=== PATIENT | male | born 1995 | race Caucasian/White ===

== ENCOUNTER 2020-07-09 16:22 | Emergency (ER) | payer OTHER, SELFPAY ==
--- NOTE | ~2020-07-09 | XR_ITS ---
EXAMINATION: XR CHEST, 2 VIEWS CLINICAL INFORMATION: Chest pain. COMPARISON: None. TECHNIQUE: PA and lateral views of the chest were obtained. FINDINGS: Lungs are clear. Small azygous fissure is noted. Cardiac leads overlie the chest. No consolidation, pneumothorax, or pleural effusion. Cardiac and mediastinal contours are normal. Pulmonary vasculature is unremarkable. Trachea is midline. Osseous structures are unremarkable. XR/XR chest 2V IMPRESSION: Normal chest radiographs.
--- NOTE | ~2020-07-09 | CT_ITS ---
EXAMINATION: CT ANGIOGRAM OF THE CHEST WITH AND WITHOUT CONTRAST (CT PULMONARY ANGIOGRAM FOR PE) CLINICAL INFORMATION: Reason for Exam right sided CP, elevated d dimer, elevated trop, r/o pe COMPARISON: None TECHNIQUE: Prior to contrast administration, noncontrast localization images were obtained. Subsequently, multidetector volumetric imaging was performed from the thoracic inlet to below the diaphragms following the administration of 57 mL Omnipaque 350 intravenous contrast. No contrast reaction reported Sagittal, coronal, and MIP oblique sagittal reformatted images were obtained on the CT workstation, uploaded to PACS, and reviewed. This CT examination was performed using dose optimization techniques as appropriate, variously including the following: *Automated exposure control *Adjustment of mA and/or kV according to patient size (this includes techniques or standardized protocols for targeted exams where dose is matched to indication/reason for exam; i.e. extremities or head) *Use of iterative reconstruction technique Total exam dose-length product 296 mGy-cm FINDINGS: QUALITY OF STUDY/CONTRAST BOLUS: Satisfactory. PULMONARY ARTERIES: No central or segmental pulmonary emboli. THORACIC AORTA: No aneurysm or dissection. LUNG: No focal consolidation, nodules or masses. Incidentally noted azygos lobe and fissure. PLEURA: No pleural effusion or pneumothorax. MEDIASTINUM: .Normal heart size. No pericardial effusion. No hilar or mediastinal lymphadenopathy. No evidence of septal bowing or right heart strain. CHEST WALL/AXILLA: No axillary or internal mammary lymphadenopathy. OSSEOUS STRUCTURES: No acute or suspicious osseous abnormality. UPPER ABDOMEN: Unremarkable. No reflux of contrast into the hepatic veins to suggest elevated right heart pressures. CT/CT angio chest PE protocol IMPRESSION: No pulmonary embolus. Clear lungs. VTE: negative
[2020-07-09 16:31] VITALS: BP 113/61; PULSE 72; RESP 16; TEMP 36.8; O2SAT 100; BMI 20.7
--- NOTE | 2020-07-09 16:34 | ECG_ITS ---
Test Reason : CHEST PAIN Blood Pressure : / mmHG Vent. Rate : 064 BPM Atrial Rate : 064 BPM P-R Int : 140 ms QRS Dur : 104 ms QT Int : 366 ms P-R-T Axes : 077 070 055 degrees QTc Int : 377 ms Normal sinus rhythm Incomplete right bundle branch block Borderline ECG No previous ECGs available Referred By: Lety Sánchez Electronically Signed By:FRANDY CAMPBELL MD
--- NOTE | 2020-07-09 17:38 | ED_ITS ---
HPI - Chest Pain General Chief Complaint: Chest Pain <HOWARD Martinez Last Filed: 07/09/20 21:46> Stated Complaint: chest pain - sent from [facility] <HOWARD Martinez Last Filed: 07/09/20 21:46> Time Seen by Provider: 07/09/20 17:17 <HOWARD Martinez Last Filed: 07/09/20 21:46> Source: patient <HOWARD Martinez Last Filed: 07/09/20 21:46> Mode of arrival: ambulatory <HOWARD Martinez Last Filed: 07/09/20 21:46> Limitations: no limitations <HOWARD Martinez Last Filed: 07/09/20 21:46> History of Present Illness HPI narrative: 24-year-old male previously healthy here with complaints of right-sided chest pain which radiates up to the right side of the neck since waking this morning. He tells me the pain was initially very severe and felt tight and was associated with shortness of breath. He tells me that it took his breath away. No cough, dizziness, nausea, vomiting, diaphoresis. Patient tells me he went to urgent care and had an EKG and received Toradol and now his pain is improving. Pain is worsened with lying flat and feels better when he is sitting up or sitting forward. Denies recent travel. Denies sick contacts. No history of PE or DVT or family history. No family history of SCD. Patient occasionally vapes Received Pfizer vaccine 2nd dose 3 days ago. <HOWARD Martinez Last Filed: 07/09/20 21:46> Related Data Home Medications: Home Medications Medication Instructions Recorded Confirmed multivitamin [Once Daily 1 tab PO DAILY 07/09/20 07/09/20 Multivitamin] <HOWARD Martinez Last Filed: 07/09/20 21:46> Allergies/Adverse Reactions: Allergies Allergy/AdvReac Type Severity Reaction Status Date / Time Penicillins Allergy Mild hives Verified 07/09/20 17:26 amoxicillin Allergy Hives Verified 07/09/20 22:54 <HOWARD Martinez Last Filed: 07/09/20 21:46> Review of Systems Review of Systems: Yes all other systems are reviewed and are negative <Lety Sánchez NP - Last Filed: 07/09/20 21:46> Constitutional: Constitutional: Reports no additional constitutional complaints, Denies body ache(s), Denies chills, Denies fever(s), Denies headache(s) and Denies weakness <Lety Sánchez NP - Last Filed: 07/09/20 21:46> Eyes: Eyes: Reports no additional eye complaints and Denies change in vision <Lety Sánchez NP - Last Filed: 07/09/20 21:46> ENT: Reports system reviewed and no additional complaints, except as documented, Denies dizziness, Denies headache(s), Denies nasal congestion, Ward es nasal discharge and Denies neck pain <Lety Sánchez NP - Last Filed: 07/09/20 21:46> Cardiovascular: Cardiovascular: Reports no additional cardiovascular complaints, Reports chest pain, Denies leg edema and Reports dyspnea <Lety Sánchez NP - Last Filed: 07/09/20 21:46> Respiratory: Respiratory: Reports no additional respiratory complaints, Denies cough and Reports dyspnea <Lety Sánchez NP - Last Filed: 07/09/20 21:46> Gastrointestinal: Gastrointestinal: Reports no additional gastrointestinal complaints, Denies abdominal pain, Denies diarrhea, Denies nausea and Denies vomiting <Lety Sánchez NP - Last Filed: 07/09/20 21:46> Genitourinary: Genitourinary: Denies urinary incontinence <Lety Sánchez NP - Last Filed: 07/09/20 21:46> Musculoskeletal: Musculoskeletal: Reports no additional musculoskeletal complaints, Denies back pain, Denies arthralgias, Denies joint swelling, Denies neck pain, Denies numbness and Denies tingling <Lety Sánchez NP - Last Filed: 07/09/20 21:46> Integumentary/Breasts: Skin/Breast: Reports system reviewed and no additional complaints, except as docu and Denies rash <Lety Sánchez NP - Last Filed: 07/09/20 21:46> Neurologic: Reports system reviewed and no additional complaints, except as documented, Denies Abnormal speech present, Denies dizziness, Denies headache(s), Denies numbness, Denies tingling and Denies weakness <Lety Sánchez NP - Last Filed: 07/09/20 21:46> PMFSH Past Medical History Attestation statement: The following information was validated with the patient. <Lety Sánchez NP - Last Filed: 07/09/20 21:46> Source: old records reviewed and nursing notes reviewed <Lety Sánchez NP - Last Filed: 07/09/20 21:46> Medical History: Medical History No known health problems <Lety Sánchez NP - Last Filed: 07/09/20 21:46> Social History Social History: Social History Smoked in Last 30 Days: No Use of substances other than those prescribed or required for medical reasons: No Advance Directives: No Advance Directives Information Provided: No <Lety Sánchez NP - Last Filed: 07/09/20 21:46> Physical Exam Vital Signs: Vital Signs: Last Vital Signs Temp 98.3 F 07/09/20 16:31 Pulse 69 07/09/20 23:27 Resp 10 L 07/09/20 23:27 BP 105/77 07/09/20 23:27 Pulse Ox 97 07/09/20 23:27 Body Mass Index 20.5 <Lety Sánchez NP - Last Filed: 07/09/20 21:46> Vital Signs: Last Vital Signs Temp 98.3 F 07/09/20 16:31 Pulse 69 07/09/20 23:27 Resp 10 L 07/09/20 23:27 BP 105/77 07/09/20 23:27 Pulse Ox 97 07/09/20 23:27 Body Mass Index 20.5 <Lisandro Berg MD - Last Filed: 07/10/20 00:04> Const: General: cooperative, healthy appearing, comfortable and no acute distress <Lety Sánchez NP - Last Filed: 07/09/20 21:46> Orientation/consciousness: patient oriented x3 <Lety Sánchez NP - Last Filed: 07/09/20 21:46> Limitations: no limitations <Lety Sánchez NP - Last Filed: 07/09/20 21:46> HENMT: Head: Yes normal to inspection <Lety Sánchez NP - Last Filed: 07/09/20 21:46> Ears: hearing grossly normal bilaterally <Lety Sánchez NP - Last Filed: 07/09/20 21:46> General nose exam: Normal external nose present <Lety Sánchez NP - Last Filed: 07/09/20 21:46> Face and sinus: Yes normal facial exam <Lety Sánchez NP - Last Filed: 07/09/20 21:46> Mouth: Normal oral and palatal mucosa present <Lety Sánchez NP - Last Filed: 07/09/20 21:46> Throat: Yes posterior oropharynx normal <Lety Sánchez NP - Last Filed: 07/09/20 21:46> Eyes: General: appearance normal, both eyes and all related structures <Lety Sánchez NP - Last Filed: 07/09/20 21:46> Pupils: Equal, round and reactive pupils present <Lety Sánchez NP - Last Filed: 07/09/20 21:46> Neck: Neck: Yes normal visual inspection <Lety Sánchez NP - Last Filed: 07/09/20 21:46> Chest: Chest palpation & inspection: normal inspection of the chest and normal palpation of entire chest wall <Lety Sánchez NP - Last Filed: 07/09/20 21:46> Resp: Effort & Inspection: normal respiratory effort <Lety Sánchez NP - Last Filed: 07/09/20 21:46> Auscultation: clear to auscultation bilaterally <Lety Sánchez NP - Last Filed: 07/09/20 21:46> Cardio: Rate: regular rate <Lety Sánchez NP - Last Filed: 07/09/20 21:46> Rhythm: regular rhythm <Lety áSnchez NP - Last Filed: 07/09/20 21:46> Peripheral pulses: Peripheral pulses 2+ throughout <Lety Sánchez BLACK PICKLER - Last Filed: 07/09/20 21:46> GI: Inspection: Yes normal to inspection <Lety Sánchez NP - Last Filed: 07/09/20 21:46> Palpation (GI): Soft to palpation and nontender <Lety Sánchez BLACK PICKLER - Last Filed: 07/09/20 21:46> Auscultation: normal bowel sounds <Lety Sánchez NP - Last Filed: 07/09/20 21:46> Back/Spine/Pelvis: Thoracic/Lumbar Spine: thoracic and lumbar spine normal to inspection <Lety Sánchez BLACK PICKLER - Last Filed: 07/09/20 21:46> Skin: General skin exam: no rashes or lesions noted <Lety Sánchez BLACK PICKLER - Last Filed: 07/09/20 21:46> Neuro: General: patient oriented x3, no focal motor deficits and normal sensation to monofilament <Lety Sánchez NP - Last Filed: 07/09/20 21:46> Cranial nerves: Yes Equal, round and reactive pupils present <Lety Sánchez NP - Last Filed: 07/09/20 21:46> Cognition (Neuro): normal cognition <Lety Sánchez NP - Last Filed: 07/09/20 21:46> Speech: No Abnormal speech present <Lety Sánchez BLACK PICKLER - Last Filed: 07/09/20 21:46> Gait exam (Neuro): Normal gait present <Lety Sánchez NP - Last Filed: 07/09/20 21:46> Motor exam (neuro): 5/5 motor strength present throughout <Lety Sánchez BLACK PICKLER - Last Filed: 07/09/20 21:46> Extrem: General: Yes normal to inspection, Yes no pedal edema and Yes no calf tenderness <Lety Sánchez BLACK PICKLER - Last Filed: 07/09/20 21:46> Course Course Course Narrative: 24-year-old male here with chest pain since waking which is improving as the day goes on. It is worsened with position changes and deep breathing. Hemodynamically stable. Will need labs, EKG, chest x-ray 1900-troponin elevated at 7652. A D-dimer was added in addition to inflammatory levels. Additional labs unremarkable. Chest x-ray no shows no acute finding. EKG shows a right bundle branch block but no elevation in the ST segment or evidence of right heart strain. Discussed with attending Dr. Berg. Plan for CTA to rule out PE/dissection/pericardial effusion. Then will discuss with Cardiology and plan for admission. 2099-CT negative for PE. Repeat troponin pending. Discussed with Dr. Vivar from Cardiology. Recommended aspirin, statins and heparin drip, following troponins, echocardiogram, cardiology consult. Requesting urine toxicology screen, cpk. Consider myocarditis. Patient does not need transfer and [place] [facility] [place]. 2129-second troponin elevated. Did update Dr Vivar from cardiology. Continue with plan of treating as above. No need for transfer as patient is clinically well and has symptoms which are much improved from previous. Call out to medicine to discuss for admission. 2144-Spoke to Dr Hernandez who accepted admission. <Lety Sánchez NP - Last Filed: 07/09/20 21:46> MDM - Chest Pain MDM Narrative Medical decision making narrative: Pericarditis, chest wall strain, , ACS, PE, myocarditis, pericarditis <Lety Sánchez NP - Last Filed: 07/09/20 21:46> Medical Records Data Attestation: I reviewed the patient's medical records. <Lety Sánchez NP - Last Filed: 07/09/20 21:46> Lab Data Attestation: I reviewed the patient's lab results. <Lety Sánchez NP - Last Filed: 07/09/20 21:46> Result diagrams: : 07/09/20 21:08 07/09/20 17:40 <Lety Sánchez NP - Last Filed: 07/09/20 21:46> Labs: Lab Results 04/25/21 04/25/21 04/25/21 Range/Units 17:40 17:40 17:40 WBC 7.8 (4.8-10.8) X10*3/uL RBC 5.13 (4.60-5.80) X10*6/uL Hgb 14.8 (14.0-18.0) g/dl Hct 45.6 (42-52) % MCV 88.9 (80-98) fL MCH 28.8 (27.0-33.0) pg MCHC 32.5 (31.0-36.0) g/dl RDW 12.9 (11.0-16.0) % Plt Count 168 (160-400) X10*3/uL MPV 11.6 (9.4-12.4) fL Immature Gran % (Auto) 0.3 (0.0-0.4) % Neut % (Auto) 81.7 H (45-73) % Lymph % (Auto) 9.0 L (20-40) % [place] % (Auto) 8.4 (2-11) % Eos % (Auto) 0.3 (0-4) % Baso % (Auto) 0.3 (0-2) % Lymph # (Auto) 0.7 L (1.2-4.9) X10*3/uL [place] # (Auto) 0.7 (0.1-1.2) X10*3/uL Eos # (Auto) 0.0 (0.0-0.4) X10*3/uL Baso # (Auto) 0.0 (0.0-0.2) X10*3/uL Abs Immat Gran (auto) 0.02 (0.00-0.03) X10*3/uL Absolute Neuts (auto) 6.3 (2.0-8.3) X10*3/uL Absolute Nucleated RBC 0.000 (0.0-0.012) X10*3/uL Nucleated RBC % (auto) 0.0 (0.0-0.2) /100WBC ESR (0-15) MM/HR PT (10.8-13.0) SEC INR (0.9-1.1) APTT (24.1-38.0) SEC PTT (Heparin Protocol) (53-77.9) SEC D-Dimer NG/ML Sodium 141 (135-145) mmol/L Potassium 3.9 (3.3-5.1) mmol/L Chloride 104 (96-108) mmol/L Carbon Dioxide 28 (22-29) mmol/L Anion Gap 13 (12-20) BUN 20 H (9-16) mg/dL Creatinine 1.05 (0.5-1.4) mg/dL Estim Creat Clear Calc 100.9 Estimated GFR > 60 Random Glucose 102 (60-115) mg/dL Calcium 9.4 (8.4-10.2) mg/dL Magnesium 2.1 (1.6-2.6) mg/dL Total Bilirubin 1.0 (0.0-1.0) mg/dL Direct Bilirubin 0.4 (0.0-0.5) mg/dL AST 54 H (5-37) U/L ALT 17 (0-40) U/L Alkaline Phosphatase 41 (39-117) U/L Total Creatine Kinase 595 H (38-174) U/L Troponin I High Sens 7652.5 H (<3.5-35.0) ng/L C-Reactive Protein 3.62 H (< or = 0.50) mg/dL Total Protein 6.8 (6.5-8.0) g/dL Albumin 4.3 (3.5-5.0) g/dL Urine Color Urine Appearance Urine pH (5.0-8.0) Ur Specific [place] (1.005-1.025) Urine Protein (NEG-TRACE) MG/DL Urine Glucose (UA) (NEG) MG/DL Urine Ketones (NEG) MG/DL Urine Blood (NEG) Urine Nitrite (NEG) Ur Leukocyte Esterase (NEG) Urine Opiates Screen (Not Detect) Ur Barbiturates Screen (Not Detect) Ur Phencyclidine Scrn (Not Detect) Ur Amphetamines Screen (Not Detect) U Benzodiazepines Scrn (Not Detect) Urine Cocaine Screen (Not Detect) U Marijuana (THC) Screen (Not Detect) COVID-19 ([facility]) (Negative) COVID-19 Clin Com 07/09/20 07/09/20 07/09/20 Range/Units 17:40 17:40 18:47 WBC (4.8-10.8) X10*3/uL RBC (4.60-5.80) X10*6/uL Hgb (14.0-18.0) g/dl Hct (42-52) % MCV (80-98) fL MCH (27.0-33.0) pg MCHC (31.0-36.0) g/dl RDW (11.0-16.0) % Plt Count (160-400) X10*3/uL MPV (9.4-12.4) fL Immature Gran % (Auto) (0.0-0.4) % Neut % (Auto) (45-73) % Lymph % (Auto) (20-40) % [place] % (Auto) (2-11) % Eos % (Auto) (0-4) % Baso % (Auto) (0-2) % Lymph # (Auto) (1.2-4.9) X10*3/uL [place] # (Auto) (0.1-1.2) X10*3/uL Eos # (Auto) (0.0-0.4) X10*3/uL Baso # (Auto) (0.0-0.2) X10*3/uL Abs Immat Gran (auto) (0.00-0.03) X10*3/uL Absolute Neuts (auto) (2.0-8.3) X10*3/uL Absolute Nucleated RBC (0.0-0.012) X10*3/uL Nucleated RBC % (auto) (0.0-0.2) /100WBC ESR 5 (0-15) MM/HR PT 13.2 H (10.8-13.0) SEC INR 1.1 (0.9-1.1) APTT 33.4 (24.1-38.0) SEC PTT (Heparin Protocol) (53-77.9) SEC D-Dimer 214 NG/ML Sodium (135-145) mmol/L Potassium (3.3-5.1) mmol/L Chloride (96-108) mmol/L Carbon Dioxide (22-29) mmol/L Anion Gap (12-20) BUN (9-16) mg/dL Creatinine (0.5-1.4) mg/dL Estim Creat Clear Calc Estimated GFR Random Glucose (60-115) mg/dL Calcium (8.4-10.2) mg/dL Magnesium (1.6-2.6) mg/dL Total Bilirubin (0.0-1.0) mg/dL Direct Bilirubin (0.0-0.5) mg/dL AST (5-37) U/L ALT (0-40) U/L Alkaline Phosphatase (39-117) U/L Total Creatine Kinase (38-174) U/L Troponin I High Sens (<3.5-35.0) ng/L C-Reactive Protein (< or = 0.50) mg/dL Total Protein (6.5-8.0) g/dL Albumin (3.5-5.0) g/dL Urine Color Urine Appearance Urine pH (5.0-8.0) Ur Specific [place] (1.005-1.025) Urine Protein (NEG-TRACE) MG/DL Urine Glucose (UA) (NEG) MG/DL Urine Ketones (NEG) MG/DL Urine Blood (NEG) Urine Nitrite (NEG) Ur Leukocyte Esterase (NEG) Urine Opiates Screen (Not Detect) Ur Barbiturates Screen (Not Detect) Ur Phencyclidine Scrn (Not Detect) Ur Amphetamines Screen (Not Detect) U Benzodiazepines Scrn (Not Detect) Urine Cocaine Screen (Not Detect) U Marijuana (THC) Screen (Not Detect) COVID-19 ([facility]) Negative (Negative) COVID-19 Clin Com See Note 07/09/20 07/09/20 07/09/20 Range/Units 20:24 21:08 21:08 WBC 5.2 (4.8-10.8) X10*3/uL RBC 4.99 (4.60-5.80) X10*6/uL Hgb 14.6 (14.0-18.0) g/dl Hct 44.8 (42-52) % MCV 89.8 (80-98) fL MCH 29.3 (27.0-33.0) pg MCHC 32.6 (31.0-36.0) g/dl RDW 13.1 (11.0-16.0) % Plt Count 171 (160-400) X10*3/uL MPV 12.0 (9.4-12.4) fL Immature Gran % (Auto) (0.0-0.4) % Neut % (Auto) (45-73) % Lymph % (Auto) (20-40) % [place] % (Auto) (2-11) % Eos % (Auto) (0-4) % Baso % (Auto) (0-2) % Lymph # (Auto) (1.2-4.9) X10*3/uL [place] # (Auto) (0.1-1.2) X10*3/uL Eos # (Auto) (0.0-0.4) X10*3/uL Baso # (Auto) (0.0-0.2) X10*3/uL Abs Immat Gran (auto) (0.00-0.03) X10*3/uL Absolute Neuts (auto) (2.0-8.3) X10*3/uL Absolute Nucleated RBC 0.000 (0.0-0.012) X10*3/uL Nucleated RBC % (auto) 0.0 (0.0-0.2) /100WBC ESR (0-15) MM/HR PT 13.2 H (10.8-13.0) SEC INR 1.1 (0.9-1.1) APTT (24.1-38.0) SEC PTT (Heparin Protocol) 33.2 L (53-77.9) SEC D-Dimer NG/ML Sodium (135-145) mmol/L Potassium (3.3-5.1) mmol/L Chloride (96-108) mmol/L Carbon Dioxide (22-29) mmol/L Anion Gap (12-20) BUN (9-16) mg/dL Creatinine (0.5-1.4) mg/dL Estim Creat Clear Calc Estimated GFR Random Glucose (60-115) mg/dL Calcium (8.4-10.2) mg/dL Magnesium (1.6-2.6) mg/dL Total Bilirubin (0.0-1.0) mg/dL Direct Bilirubin (0.0-0.5) mg/dL AST (5-37) U/L ALT (0-40) U/L Alkaline Phosphatase (39-117) U/L Total Creatine Kinase (38-174) U/L Troponin I High Sens 93984.1 H D (<3.5-35.0) ng/L C-Reactive Protein (< or = 0.50) mg/dL Total Protein (6.5-8.0) g/dL Albumin (3.5-5.0) g/dL Urine Color Urine Appearance Urine pH (5.0-8.0) Ur Specific [place] (1.005-1.025) Urine Protein (NEG-TRACE) MG/DL Urine Glucose (UA) (NEG) MG/DL Urine Ketones (NEG) MG/DL Urine Blood (NEG) Urine Nitrite (NEG) Ur Leukocyte Esterase (NEG) Urine Opiates Screen (Not Detect) Ur Barbiturates Screen (Not Detect) Ur Phencyclidine Scrn (Not Detect) Ur Amphetamines Screen (Not Detect) U Benzodiazepines Scrn (Not Detect) Urine Cocaine Screen (Not Detect) U Marijuana (THC) Screen (Not Detect) COVID-19 ([facility]) (Negative) COVID-19 Clin Com 07/09/20 07/09/20 Range/Units 21:19 21:19 WBC (4.8-10.8) X10*3/uL RBC (4.60-5.80) X10*6/uL Hgb (14.0-18.0) g/dl Hct (42-52) % MCV (80-98) fL MCH (27.0-33.0) pg MCHC (31.0-36.0) g/dl RDW (11.0-16.0) % Plt Count (160-400) X10*3/uL MPV (9.4-12.4) fL Immature Gran % (Auto) (0.0-0.4) % Neut % (Auto) (45-73) % Lymph % (Auto) (20-40) % [place] % (Auto) (2-11) % Eos % (Auto) (0-4) % Baso % (Auto) (0-2) % Lymph # (Auto) (1.2-4.9) X10*3/uL [place] # (Auto) (0.1-1.2) X10*3/uL Eos # (Auto) (0.0-0.4) X10*3/uL Baso # (Auto) (0.0-0.2) X10*3/uL Abs Immat Gran (auto) (0.00-0.03) X10*3/uL Absolute Neuts (auto) (2.0-8.3) X10*3/uL Absolute Nucleated RBC (0.0-0.012) X10*3/uL Nucleated RBC % (auto) (0.0-0.2) /100WBC ESR (0-15) MM/HR PT (10.8-13.0) SEC INR (0.9-1.1) APTT (24.1-38.0) SEC PTT (Heparin Protocol) (53-77.9) SEC D-Dimer NG/ML Sodium (135-145) mmol/L Potassium (3.3-5.1) mmol/L Chloride (96-108) mmol/L Carbon Dioxide (22-29) mmol/L Anion Gap (12-20) BUN (9-16) mg/dL Creatinine (0.5-1.4) mg/dL Estim Creat Clear Calc Estimated GFR Random Glucose (60-115) mg/dL Calcium (8.4-10.2) mg/dL Magnesium (1.6-2.6) mg/dL Total Bilirubin (0.0-1.0) mg/dL Direct Bilirubin (0.0-0.5) mg/dL AST (5-37) U/L ALT (0-40) U/L Alkaline Phosphatase (39-117) U/L Total Creatine Kinase (38-174) U/L Troponin I High Sens (<3.5-35.0) ng/L C-Reactive Protein (< or = 0.50) mg/dL Total Protein (6.5-8.0) g/dL Albumin (3.5-5.0) g/dL Urine Color YELLOW Urine Appearance CLEAR Urine pH 8.0 (5.0-8.0) Ur Specific [place] 1.010 (1.005-1.025) Urine Protein NEG (NEG-TRACE) MG/DL Urine Glucose (UA) 100 H (NEG) MG/DL Urine Ketones NEG (NEG) MG/DL Urine Blood NEG (NEG) Urine Nitrite NEG (NEG) Ur Leukocyte Esterase NEG (NEG) Urine Opiates Screen Not Detected (Not Detect) Ur Barbiturates Screen Not Detected (Not Detect) Ur Phencyclidine Scrn Not Detected (Not Detect) Ur Amphetamines Screen Not Detected (Not Detect) U Benzodiazepines Scrn Not Detected (Not Detect) Urine Cocaine Screen Not Detected (Not Detect) U Marijuana (THC) Screen Not Detected (Not Detect) COVID-19 ([facility]) (Negative) COVID-19 Clin Com <Lety Princess, BLACK PICKLER - Last Filed: 07/09/20 21:46> Lab Results 07/09/20 07/09/20 07/09/20 Range/Units 17:40 17:40 17:40 WBC 7.8 (4.8-10.8) X10*3/uL RBC 5.13 (4.60-5.80) X10*6/uL Hgb 14.8 (14.0-18.0) g/dl Hct 45.6 (42-52) % MCV 88.9 (80-98) fL MCH 28.8 (27.0-33.0) pg MCHC 32.5 (31.0-36.0) g/dl RDW 12.9 (11.0-16.0) % Plt Count 168 (160-400) X10*3/uL MPV 11.6 (9.4-12.4) fL Immature Gran % (Auto) 0.3 (0.0-0.4) % Neut % (Auto) 81.7 H (45-73) % Lymph % (Auto) 9.0 L (20-40) % [place] % (Auto) 8.4 (2-11) % Eos % (Auto) 0.3 (0-4) % Baso % (Auto) 0.3 (0-2) % Lymph # (Auto) 0.7 L (1.2-4.9) X10*3/uL [place] # (Auto) 0.7 (0.1-1.2) X10*3/uL Eos # (Auto) 0.0 (0.0-0.4) X10*3/uL Baso # (Auto) 0.0 (0.0-0.2) X10*3/uL Abs Immat Gran (auto) 0.02 (0.00-0.03) X10*3/uL Absolute Neuts (auto) 6.3 (2.0-8.3) X10*3/uL Absolute Nucleated RBC 0.000 (0.0-0.012) X10*3/uL Nucleated RBC % (auto) 0.0 (0.0-0.2) /100WBC ESR (0-15) MM/HR PT (10.8-13.0) SEC INR (0.9-1.1) APTT (24.1-38.0) SEC PTT (Heparin Protocol) (53-77.9) SEC D-Dimer NG/ML Sodium 141 (135-145) mmol/L Potassium 3.9 (3.3-5.1) mmol/L Chloride 104 (96-108) mmol/L Carbon Dioxide 28 (22-29) mmol/L Anion Gap 13 (12-20) BUN 20 H (9-16) mg/dL Creatinine 1.05 (0.5-1.4) mg/dL Estim Creat Clear Calc 100.9 Estimated GFR > 60 Random Glucose 102 (60-115) mg/dL Calcium 9.4 (8.4-10.2) mg/dL Magnesium 2.1 (1.6-2.6) mg/dL Total Bilirubin 1.0 (0.0-1.0) mg/dL Direct Bilirubin 0.4 (0.0-0.5) mg/dL AST 54 H (5-37) U/L ALT 17 (0-40) U/L Alkaline Phosphatase 41 (39-117) U/L Total Creatine Kinase 595 H (38-174) U/L Troponin I High Sens 7652.5 H (<3.5-35.0) ng/L C-Reactive Protein 3.62 H (< or = 0.50) mg/dL Total Protein 6.8 (6.5-8.0) g/dL Albumin 4.3 (3.5-5.0) g/dL Urine Color Urine Appearance Urine pH (5.0-8.0) Ur Specific [place] (1.005-1.025) Urine Protein (NEG-TRACE) MG/DL Urine Glucose (UA) (NEG) MG/DL Urine Ketones (NEG) MG/DL Urine Blood (NEG) Urine Nitrite (NEG) Ur Leukocyte Esterase (NEG) Urine Opiates Screen (Not Detect) Ur Barbiturates Screen (Not Detect) Ur Phencyclidine Scrn (Not Detect) Ur Amphetamines Screen (Not Detect) U Benzodiazepines Scrn (Not Detect) Urine Cocaine Screen (Not Detect) U Marijuana (THC) Screen (Not Detect) COVID-19 ([facility]) (Negative) COVID-19 Clin Com 04/25/21 04/25/21 04/25/21 Range/Units 17:40 17:40 18:47 WBC (4.8-10.8) X10*3/uL RBC (4.60-5.80) X10*6/uL Hgb (14.0-18.0) g/dl Hct (42-52) % MCV (80-98) fL MCH (27.0-33.0) pg MCHC (31.0-36.0) g/dl RDW (11.0-16.0) % Plt Count (160-400) X10*3/uL MPV (9.4-12.4) fL Immature Gran % (Auto) (0.0-0.4) % Neut % (Auto) (45-73) % Lymph % (Auto) (20-40) % [place] % (Auto) (2-11) % Eos % (Auto) (0-4) % Baso % (Auto) (0-2) % Lymph # (Auto) (1.2-4.9) X10*3/uL [place] # (Auto) (0.1-1.2) X10*3/uL Eos # (Auto) (0.0-0.4) X10*3/uL Baso # (Auto) (0.0-0.2) X10*3/uL Abs Immat Gran (auto) (0.00-0.03) X10*3/uL Absolute Neuts (auto) (2.0-8.3) X10*3/uL Absolute Nucleated RBC (0.0-0.012) X10*3/uL Nucleated RBC % (auto) (0.0-0.2) /100WBC ESR 5 (0-15) MM/HR PT 13.2 H (10.8-13.0) SEC INR 1.1 (0.9-1.1) APTT 33.4 (24.1-38.0) SEC PTT (Heparin Protocol) (53-77.9) SEC D-Dimer 214 NG/ML Sodium (135-145) mmol/L Potassium (3.3-5.1) mmol/L Chloride (96-108) mmol/L Carbon Dioxide (22-29) mmol/L Anion Gap (12-20) BUN (9-16) mg/dL Creatinine (0.5-1.4) mg/dL Estim Creat Clear Calc Estimated GFR Random Glucose (60-115) mg/dL Calcium (8.4-10.2) mg/dL Magnesium (1.6-2.6) mg/dL Total Bilirubin (0.0-1.0) mg/dL Direct Bilirubin (0.0-0.5) mg/dL AST (5-37) U/L ALT (0-40) U/L Alkaline Phosphatase (39-117) U/L Total Creatine Kinase (38-174) U/L Troponin I High Sens (<3.5-35.0) ng/L C-Reactive Protein (< or = 0.50) mg/dL Total Protein (6.5-8.0) g/dL Albumin (3.5-5.0) g/dL Urine Color Urine Appearance Urine pH (5.0-8.0) Ur Specific [place] (1.005-1.025) Urine Protein (NEG-TRACE) MG/DL Urine Glucose (UA) (NEG) MG/DL Urine Ketones (NEG) MG/DL Urine Blood (NEG) Urine Nitrite (NEG) Ur Leukocyte Esterase (NEG) Urine Opiates Screen (Not Detect) Ur Barbiturates Screen (Not Detect) Ur Phencyclidine Scrn (Not Detect) Ur Amphetamines Screen (Not Detect) U Benzodiazepines Scrn (Not Detect) Urine Cocaine Screen (Not Detect) U Marijuana (THC) Screen (Not Detect) COVID-19 ([facility]) Negative (Negative) COVID-19 Clin Com See Note 07/09/20 07/09/20 07/09/20 Range/Units 20:24 21:08 21:08 WBC 5.2 (4.8-10.8) X10*3/uL RBC 4.99 (4.60-5.80) X10*6/uL Hgb 14.6 (14.0-18.0) g/dl Hct 44.8 (42-52) % MCV 89.8 (80-98) fL MCH 29.3 (27.0-33.0) pg MCHC 32.6 (31.0-36.0) g/dl RDW 13.1 (11.0-16.0) % Plt Count 171 (160-400) X10*3/uL MPV 12.0 (9.4-12.4) fL Immature Gran % (Auto) (0.0-0.4) % Neut % (Auto) (45-73) % Lymph % (Auto) (20-40) % [place] % (Auto) (2-11) % Eos % (Auto) (0-4) % Baso % (Auto) (0-2) % Lymph # (Auto) (1.2-4.9) X10*3/uL [place] # (Auto) (0.1-1.2) X10*3/uL Eos # (Auto) (0.0-0.4) X10*3/uL Baso # (Auto) (0.0-0.2) X10*3/uL Abs Immat Gran (auto) (0.00-0.03) X10*3/uL Absolute Neuts (auto) (2.0-8.3) X10*3/uL Absolute Nucleated RBC 0.000 (0.0-0.012) X10*3/uL Nucleated RBC % (auto) 0.0 (0.0-0.2) /100WBC ESR (0-15) MM/HR PT 13.2 H (10.8-13.0) SEC INR 1.1 (0.9-1.1) APTT (24.1-38.0) SEC PTT (Heparin Protocol) 33.2 L (53-77.9) SEC D-Dimer NG/ML Sodium (135-145) mmol/L Potassium (3.3-5.1) mmol/L Chloride (96-108) mmol/L Carbon Dioxide (22-29) mmol/L Anion Gap (12-20) BUN (9-16) mg/dL Creatinine (0.5-1.4) mg/dL Estim Creat Clear Calc Estimated GFR Random Glucose (60-115) mg/dL Calcium (8.4-10.2) mg/dL Magnesium (1.6-2.6) mg/dL Total Bilirubin (0.0-1.0) mg/dL Direct Bilirubin (0.0-0.5) mg/dL AST (5-37) U/L ALT (0-40) U/L Alkaline Phosphatase (39-117) U/L Total Creatine Kinase (38-174) U/L Troponin I High Sens 83147.1 H D (<3.5-35.0) ng/L C-Reactive Protein (< or = 0.50) mg/dL Total Protein (6.5-8.0) g/dL Albumin (3.5-5.0) g/dL Urine Color Urine Appearance Urine pH (5.0-8.0) Ur Specific [place] (1.005-1.025) Urine Protein (NEG-TRACE) MG/DL Urine Glucose (UA) (NEG) MG/DL Urine Ketones (NEG) MG/DL Urine Blood (NEG) Urine Nitrite (NEG) Ur Leukocyte Esterase (NEG) Urine Opiates Screen (Not Detect) Ur Barbiturates Screen (Not Detect) Ur Phencyclidine Scrn (Not Detect) Ur Amphetamines Screen (Not Detect) U Benzodiazepines Scrn (Not Detect) Urine Cocaine Screen (Not Detect) U Marijuana (THC) Screen (Not Detect) COVID-19 (MARCO) (Negative) COVID-19 Clin Com 07/09/20 07/09/20 Range/Units 21:19 21:19 WBC (4.8-10.8) X10*3/uL RBC (4.60-5.80) X10*6/uL Hgb (14.0-18.0) g/dl Hct (42-52) % MCV (80-98) fL MCH (27.0-33.0) pg MCHC (31.0-36.0) g/dl RDW (11.0-16.0) % Plt Count (160-400) X10*3/uL MPV (9.4-12.4) fL Immature Gran % (Auto) (0.0-0.4) % Neut % (Auto) (45-73) % Lymph % (Auto) (20-40) % [place] % (Auto) (2-11) % Eos % (Auto) (0-4) % Baso % (Auto) (0-2) % Lymph # (Auto) (1.2-4.9) X10*3/uL [place] # (Auto) (0.1-1.2) X10*3/uL Eos # (Auto) (0.0-0.4) X10*3/uL Baso # (Auto) (0.0-0.2) X10*3/uL Abs Immat Gran (auto) (0.00-0.03) X10*3/uL Absolute Neuts (auto) (2.0-8.3) X10*3/uL Absolute Nucleated RBC (0.0-0.012) X10*3/uL Nucleated RBC % (auto) (0.0-0.2) /100WBC ESR (0-15) MM/HR PT (10.8-13.0) SEC INR (0.9-1.1) APTT (24.1-38.0) SEC PTT (Heparin Protocol) (53-77.9) SEC D-Dimer NG/ML Sodium (135-145) mmol/L Potassium (3.3-5.1) mmol/L Chloride (96-108) mmol/L Carbon Dioxide (22-29) mmol/L Anion Gap (12-20) BUN (9-16) mg/dL Creatinine (0.5-1.4) mg/dL Estim Creat Clear Calc Estimated GFR Random Glucose (60-115) mg/dL Calcium (8.4-10.2) mg/dL Magnesium (1.6-2.6) mg/dL Total Bilirubin (0.0-1.0) mg/dL Direct Bilirubin (0.0-0.5) mg/dL AST (5-37) U/L ALT (0-40) U/L Alkaline Phosphatase (39-117) U/L Total Creatine Kinase (38-174) U/L Troponin I High Sens (<3.5-35.0) ng/L C-Reactive Protein (< or = 0.50) mg/dL Total Protein (6.5-8.0) g/dL Albumin (3.5-5.0) g/dL Urine Color YELLOW Urine Appearance CLEAR Urine pH 8.0 (5.0-8.0) Ur Specific [place] 1.010 (1.005-1.025) Urine Protein NEG (NEG-TRACE) MG/DL Urine Glucose (UA) 100 H (NEG) MG/DL Urine Ketones NEG (NEG) MG/DL Urine Blood NEG (NEG) Urine Nitrite NEG (NEG) Ur Leukocyte Esterase NEG (NEG) Urine Opiates Screen Not Detected (Not Detect) Ur Barbiturates Screen Not Detected (Not Detect) Ur Phencyclidine Scrn Not Detected (Not Detect) Ur Amphetamines Screen Not Detected (Not Detect) U Benzodiazepines Scrn Not Detected (Not Detect) Urine Cocaine Screen Not Detected (Not Detect) U Marijuana (THC) Screen Not Detected (Not Detect) COVID-19 (MARCO) (Negative) COVID-19 Clin Com <Lisandro Berg MD - Last Filed: 07/10/20 00:04> Imaging Data Chest x-ray: Attestation: I personally reviewed and interpreted this imaging study as follows: <Lety Sánchez NP - Last Filed: 07/09/20 21:46> Radiologist's impression: EXAMINATION: XR CHEST, 2 VIEWS CLINICAL INFORMATION: Chest pain. COMPARISON: None. TECHNIQUE: PA and lateral views of the chest were obtained. FINDINGS: Lungs are clear. Small azygous fissure is noted. Cardiac leads overlie the chest. No consolidation, pneumothorax, or pleural effusion. Cardiac and mediastinal contours are normal. Pulmonary vasculature is unremarkable. Trachea is midline. Osseous structures are unremarkable. XR/XR chest 2V IMPRESSION: Normal chest radiographs. <Lety Sánchez NP - Last Filed: 07/09/20 21:46> CT scan - chest: Attestation: I personally reviewed and interpreted this imaging study as follows: <Lety Sánchez NP - Last Filed: 07/09/20 21:46> Radiologist's impression: EXAMINATION: CT ANGIOGRAM OF THE CHEST WITH AND WITHOUT CONTRAST (CT PULMONARY ANGIOGRAM FOR PE) CLINICAL INFORMATION: Reason for Exam right sided CP, elevated d dimer, elevated trop, r/o pe COMPARISON: None TECHNIQUE: Prior to contrast administration, noncontrast localization images were obtained. Subsequently, multidetector volumetric imaging was performed from the thoracic inlet to below the diaphragms following the administration of 57 mL Omnipaque 350 intravenous contrast. No contrast reaction reported Sagittal, coronal, and MIP oblique sagittal reformatted images were obtained on the CT workstation, uploaded to PACS, and reviewed. This CT examination was performed using dose optimization techniques as appropriate, variously including the following: *Automated exposure control *Adjustment of mA and/or kV according to patient size (this includes techniques or standardized protocols for targeted exams where dose is matched to indication/reason for exam; i.e. extremities or head) *Use of iterative reconstruction technique Total exam dose-length product 296 mGy-cm FINDINGS: QUALITY OF STUDY/CONTRAST BOLUS: Satisfactory. PULMONARY ARTERIES: No central or segmental pulmonary emboli. THORACIC AORTA: No aneurysm or dissection. LUNG: No focal consolidation, nodules or masses. Incidentally noted azygos lobe and fissure. PLEURA: No pleural effusion or pneumothorax. MEDIASTINUM: .Normal heart size. No pericardial effusion. No hilar or mediastinal lymphadenopathy. No evidence of septal bowing or right heart strain. CHEST WALL/AXILLA: No axillary or internal mammary lymphadenopathy. OSSEOUS STRUCTURES: No acute or suspicious osseous abnormality. UPPER ABDOMEN: Unremarkable. No reflux of contrast into the hepatic veins to suggest elevated right heart pressures. CT/CT angio chest PE protocol IMPRESSION: No pulmonary embolus. Clear lungs. VTE: negative <Lety Sánchez NP - Last Filed: 07/09/20 21:46> ECG Data ECG #1: Attestation: I personally reviewed and interpreted this ECG as follows: <Lety Sánchez NP - Last Filed: 07/09/20 21:46> ECG interpretation date: 07/09/20 <HOWARD Martinez Last Filed: 07/09/20 21:46> ECG interpretation time: 16:34 <HOWARD Martinez Last Filed: 07/09/20 21:46> Interpretation: Normal sinus rhythm with a rate of 64, normal DE, incomplete right bundle branch block, normal Qtc <HOWARD Martinez Last Filed: 07/09/20 21:46> Discharge Plan Discharge Clinical Impression: Chest pain, Elevated troponin <HOWARD Martinez Last Filed: 07/09/20 21:46> Patient Disposition: Admitted As Inpatient <HOWARD Martinez Last Filed: 07/09/20 21:46>
[2020-07-09 17:44] LABS: MANUAL DIFF FLAG NO
[2020-07-09 17:47] LABS: Basophils Percent Auto 0.3 % (0-2); Eosinophils Percent Auto 0.3 % (0-4); Hematocrit 45.6 % (42-52); Hemoglobin 14.8 g/dl (14.0-18.0); Imm Gran Abs Auto 0.02 X10*3/uL (0.00-0.03); Imm Gran Pct Auto 0.3 % (0.0-0.4); Lymphocytes Absolute Auto 0.7 X10*3/uL (1.2-4.9); Mean Corpuscular HGB Conc 32.5 g/dl (31.0-36.0); Mean Corpuscular Hemoglobin 28.8 pg (27.0-33.0); Mean Corpuscular Volume 88.9 fL (80-98); Mean Platelet Volume 11.6 fL (9.4-12.4); Monocytes Absolute Auto 0.7 X10*3/uL (0.1-1.2); Monocytes Percent Auto 8.4 % (2-11); Neutrophils Absolute Auto 6.3 X10*3/uL (2.0-8.3); Neutrophils Percent Auto 81.7 % (45-73); Platelet Count 168 X10*3/uL (160-400); Red Blood Count 5.13 X10*6/uL (4.60-5.80); Red Cell Distribution Width 12.9 % (11.0-16.0); White Blood Count 7.8 X10*3/uL (4.8-10.8)
[2020-07-09 17:53] LABS: INTERNATIONAL NORM RATIO 1.1 (0.9-1.1); Prothrombin Time 13.2 SEC (10.8-13.0)
[2020-07-09 18:08] LABS: Alanine Aminotransferase 17 U/L (0-40); Albumin Level 4.3 g/dL (3.5-5.0); Alkaline Phosphatase 41 U/L (39-117); Anion Gap 13 (12-20); Aspartate Amino Transferase 54 U/L (5-37); Bilirubin Direct 0.4 mg/dL (0.0-0.5); Blood Urea Nitrogen 20 mg/dL (9-16); Calcium 9.4 mg/dL (8.4-10.2); Carbon Dioxide 28 mmol/L (22-29); Chloride 104 mmol/L (96-108); Creatinine Clr Calc Pharmacy 100.9; Estimated Glomerular Filt Rate > 60; Glucose Random 102 mg/dL (60-115); Magnesium 2.1 mg/dL (1.6-2.6); Potassium 3.9 mmol/L (3.3-5.1); Sodium 141 mmol/L (135-145); Total Protein 6.8 g/dL (6.5-8.0)
[2020-07-09 18:47] VITALS: BP 105/51; PULSE 90; RESP 17; O2SAT 98
[2020-07-09 18:48] LABS: D Dimer 214 NG/ML
[2020-07-09 18:50] LABS: C Reactive Protein 3.62 mg/dL (< or = 0.50)
[2020-07-09 19:24] LABS: Erythrocyte Sedimentation Rate 5 MM/HR (0-15)
[2020-07-09 19:35] LABS: COVID-19 Test Negative (Negative)
[2020-07-09] MEDS: iohexoL 350 MG/ML 100 ML INFUS..BTL IV (19:54)
[2020-07-09 20:55] LABS: Partial Thromboplastin Time 33.4 SEC (24.1-38.0)
--- NOTE | 2020-07-09 21:03 | PC.NURSE ---
PT DENIES CP AT THIS TIME, IS AWARE OF PLAN OF CARE FOR HEPARIN DRIP AND ADMISSION TO HOSPITAL. PT IS AGREEABLE TO THIS PLAN
[2020-07-09 21:24] LABS: Hematocrit 44.8 % (42-52); Hemoglobin 14.6 g/dl (14.0-18.0); Mean Corpuscular HGB Conc 32.6 g/dl (31.0-36.0); Mean Corpuscular Hemoglobin 29.3 pg (27.0-33.0); Mean Corpuscular Volume 89.8 fL (80-98); Platelet Count 171 X10*3/uL (160-400); Red Blood Count 4.99 X10*6/uL (4.60-5.80); Red Cell Distribution Width 13.1 % (11.0-16.0); White Blood Count 5.2 X10*3/uL (4.8-10.8)
[2020-07-09 21:27] LABS: Glucose Urine UA 100 MG/DL (NEG); Leukocyte Esterase Urine NEG (NEG); Nitrite Urine NEG (NEG); Urine Blood NEG (NEG); Urine Ketones NEG (NEG); Urine Protein NEG (NEG-TRACE)
[2020-07-09 21:28] LABS: Appearance Urine CLEAR; Color Urine YELLOW
[2020-07-09 21:29] LABS: INTERNATIONAL NORM RATIO 1.1 (0.9-1.1); Prothrombin Time 13.2 SEC (10.8-13.0)
[2020-07-09] MEDS: Aspirin 81 MG TAB.CHEW 324 MG PO (21:30)
[2020-07-09 21:32] LABS: PTT Heparin Drip 33.2 SEC (53-77.9)
[2020-07-09] MEDS: Heparin Sodium,Porcine 5,000 UNIT/ML VIAL 2600 UNIT IVPUSH (21:32)
[2020-07-09 21:36] VITALS: BMI 20.5
[2020-07-09] MEDS: Heparin Sodium,Porcine/1/2NS 25,000 UNIT/250 ML IV.SOLN 7.89 UNIT IVCONT (21:42)
[2020-07-09 22:01] LABS: Amphetamine Screen Urine Not Detected (Not Detect); Barbiturates, Urine Not Detected (Not Detect); Benzodiazepines Screen Urine Not Detected (Not Detect); Cannabinoid Screen Urine Not Detected (Not Detect); Cocaine Screen Urine Not Detected (Not Detect); Opiate Screen Urine Not Detected (Not Detect); Phencyclidine Screen Urine Not Detected (Not Detect)
--- NOTE | 2020-07-09 22:17 | ECG_ITS ---
Test Reason : REPEAT Blood Pressure : / mmHG Vent. Rate : 068 BPM Atrial Rate : 068 BPM P-R Int : 140 ms QRS Dur : 106 ms QT Int : 356 ms P-R-T Axes : 073 058 045 degrees QTc Int : 378 ms Normal sinus rhythm RSR' or QR pattern in V1 suggests right ventricular conduction delay T wave amplitude has increased in Anterolateral leads Abnormal ECG When compared with ECG of 09-JUL-2020 16:34, T waves more prominent in anterolateral leads Referred By: Lety Sánchez Electronically Signed By:FRANDY CAMPBELL MD
--- NOTE | 2020-07-09 22:22 | PC.NURSE ---
PER PT SUDDEN ONSET MID STERNAL CP RADIATING TO R SIDE OF NECK. PT STATES PAIN IS 8/10 VS ARE DOCUMENTED. HOSPITALIST AT BEDSIDE, EKG DONE, HOSPITALIST TO CONSULT CARDS AGAIN. WILL CONTINUE TO MONITOR
[2020-07-09 22:23] VITALS: BP 105/64; PULSE 78; RESP 12; O2SAT 97
[2020-07-09] MEDS: ondansetron HCL 4 MG/2 ML VIAL IVPUSH (22:42)
[2020-07-09] MEDS: Morphine Sulfate 4 MG/ML CARTRIDGE IVPUSH (22:43)
[2020-07-09 22:50] VITALS: PULSE 77; RESP 10; O2SAT 95
--- NOTE | 2020-07-09 22:53 | PC.NURSE ---
PER PT 2ND MODERNA VACCINE 07/06 STATES 10 HRS OF FEELING SHITTY , FEVER, CHILLS BODY ACHES. PT STATES WORST I HAVE EVER FELT PT STATES FEVER FOR >24 HRS
[2020-07-09 22:54] VITALS: BP 105/60; PULSE 67; RESP 11; O2SAT 96
[2020-07-09 23:27] VITALS: BP 105/77; PULSE 69; RESP 10; O2SAT 97
[2020-07-10] VITALS: BP 128/79; PULSE 75; RESP 11; O2SAT 96
[2020-07-10] MEDS: 0.9 % Sodium Chloride 1,000 ML 999 ML IV (00:01)
[2020-07-10] MEDS: HYDROmorphone HCl 1 MG/ML SYRINGE IVPUSH (00:01)
[2020-07-10] MEDS: ondansetron HCL 4 MG/2 ML VIAL IVPUSH (00:33)
== END 2020-07-10 00:42 | disposition short-term general hospital (02) ==
PROVIDERS: Nurse Practitioner Family; Emergency Provider Emergency Medicine Emergency Medical Services; PCP Nurse Practitioner Family
DX: R07.9 Chest pain, unspecified (principal); Z20.822 Contact with and (suspected) exposure to COVID-19; R77.8 Other specified abnormalities of plasma proteins
CPT/HCPCS: 36415; 71046; 71275; 80048; 80076; 80307; 81003; 82550; 83735; 84484; 85025; 85027; 85379; 85610; 85652; 85730; 86140; 87635; 93005; 96361; 96365; 96366; 96374; 96375; 99285; J1170; J2270; J2405; Q9967

== ENCOUNTER 2021-08-24 16:04 | Emergency (ER) | payer OTHER, SELFPAY ==
--- NOTE | 2021-08-24 16:07 | ECG_ITS ---
Test Reason : PALPITATIONS Blood Pressure : / mmHG Vent. Rate : 081 BPM Atrial Rate : 081 BPM P-R Int : 158 ms QRS Dur : 110 ms QT Int : 358 ms P-R-T Axes : 075 063 056 degrees QTc Int : 415 ms Sinus rhythm with marked sinus arrhythmia Incomplete right bundle branch block Borderline ECG When compared with ECG of 09-JUL-2020 22:17, No significant changes seen Referred By: Generic ED Physician Electronically Signed By:MINI CHAUHAN
[2021-08-24 16:08] VITALS: BP 141/61; PULSE 84; RESP 16; TEMP 36.9; O2SAT 97; BMI 23.0
--- NOTE | 2021-08-24 21:06 | ED.CHESTPAIN ---
HPI - Chest Pain General Chief Complaint: Chest Pain Stated Complaint: Palpitations/Chest pain Source: patient Mode of arrival: ambulatory Limitations: no limitations History of Present Illness HPI narrative: 25-year-old male presents with chest pain, shortness breath, palpitations that started approximately 930 this morning. 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 MD complaint: chest pain Pertinent past history: other (Vaccine related myocarditis) Onset (ago): hour(s) (Several hours prior to arrival) Timing of current episode: still present Prior episodes: Yes Onset: during exertion Pain location: substernal Pain radiation: none Severity: moderate Pain scale (0-10): 5 Quality: tightness and heaviness Relieving factors: nothing Exacerbating factors: exertion and stress Associated symptoms: palpitations Treatment prior to arrival: none Risk Factors Coronary artery disease risk factors: none Thoracic aortic dissection risk factors: none Related Data Home Medications Medication Instructions Recorded Confirmed multivitamin 1 tab PO DAILY 07/09/20 07/09/20 Allergies Allergy/AdvReac Type Severity Reaction Status Date / Time Penicillins Allergy Mild hives Verified 07/09/20 17:26 amoxicillin Allergy Hives Verified 07/09/20 22:54 Review of Systems Review of Systems: Constitutional: No Fever, No Chills ENT/Mouth: No Ear Pain, No Hoarseness, No sore throat Eyes: No Eye Pain, No Swelling, No Redness, No Foreign Body Cardiovascular: Positive Chest Pain, positive SOB, positive palpitations Respiratory: No Cough, No Dyspnea Gastrointestinal: No Nausea, No Vomiting, No Diarrhea, No abdominal Pain Genitourinary: No Dysuria, No Hematuria Musculoskeletal: No joint pain, No Myalgias, No Joint Swelling Skin: No Skin lacerations, No rash Neuro: No Weakness, No Numbness, No Paresthesias, No Loss of Consciousness, No Dizziness, No Headache Psych: No Anxiety/Panic, No Depression Heme/Lymph: no easy bruising, no Lymphadenopathy Endocrine: No Polyuria, No Polydipsia Yes all other systems are reviewed and are negative [facility] Past Medical History Attestation statement: The following information was validated with the patient. Source: old records reviewed Medical History No known health problems Social History Social History Advance Directives: No Advance Directives Information Provided: No Physical Exam Vital Signs: Vital Signs: Last Vital Signs Temp 98 F 08/24/21 22:33 Pulse 68 08/24/21 22:33 Resp 18 08/24/21 22:33 BP 115/60 08/24/21 22:33 Pulse Ox 99 08/24/21 22:33 O2 Del Method 08/24/21 22:33 BMI result Body Mass Index 23.0 Appearance: Alert. Oriented X3. No acute distress. Eyes: Pupils equal, round and reactive to light. Sclera nonicteric. ENT: Pharynx normal. Moist mucous membranes. Neck: Normal inspection. Neck supple. No JVD. CVS: Normal heart rate and rhythm. Apical pulse equal to pulses to extremities. No murmurs gallops or rubs. Respiratory: No respiratory distress. Breath sounds normal. Abdomen: Soft and nontender. Skin: Skin warm and dry. Normal skin color. Normal skin turgor. Extremities: No lower extremity edema. Gait well-balanced well coordinated. Neuro: No motor deficit. No sensory deficit. Cranial nerves 2-12 intact. Course Course Course Narrative: 25-year-old male presents with shortness breath, chest pain, palpitations and chest pain. Has a significant history of myocarditis secondary to a COVID-19 vaccination. EKG completed while patient was in emergency department waiting room. 21:00 18 gauge to the right AC by this [employer]. Patient has been in the waiting room for approximately 5 hours at this time. Has a history of myocarditis secondary to COVID-19 vaccine. At this time patient is stating to have 1/10 chest pain. Feels palpitations and tightness throughout his chest. Is alert oriented x4, polite and cooperative. No prior history of drug abuse or alcohol intake. 22:22 labs are unremarkable. Troponins are negative. 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 He has an appointment in early September. He will call to request a sooner appointment. Patient is afebrile. Even unlabored respirations. No chest pain at this time. Will cancel SARs COVID, urinalysis and [place]. This case was discussed in detail with Dr. Hall. Patient verbalized understanding of and agrees to plan of care to discharge home. Verbalized understanding of signs and symptoms indicating need for emergent intervention MDM - Chest Pain Differential Diagnosis Differential diagnosis: Likely pneumothorax, unstable angina pectoris, atypical chest pain, st elevation myocardial infarction and costochondritis Differential diagnosis: Myocarditis, pericarditis Medical Records Data Attestation: I reviewed the patient's medical records. Lab Data Attestation: I reviewed the patient's lab results. Result diagrams: 08/24/21 21:14 08/24/21 21:14 Labs: Lab Results 08/24/21 08/24/21 08/24/21 Range/Units 21:14 21:14 21:14 WBC 5.5 (4.8-10.8) X10*3/uL RBC 5.41 (4.60-5.80) X10*6/uL Hgb 15.9 (14.0-18.0) g/dl Hct 47.5 (42.0-52.0) % MCV 87.8 (80.0-98.0) fL MCH 29.4 (27.0-33.0) pg MCHC 33.5 (31.0-36.0) g/dl RDW 13.2 (11.0-16.0) % Plt Count 225 (160-400) X10*3/uL MPV 11.9 (9.4-12.4) fL Immature Gran % (Auto) 0.2 (0.0-0.4) % Neut % (Auto) 56.0 (45-73) % Lymph % (Auto) 31.7 (20-40) % [place] % (Auto) 9.2 (2-11) % Eos % (Auto) 2.2 (0-4) % Baso % (Auto) 0.7 (0-2) % Lymph # (Auto) 1.8 (1.2-4.9) X10*3/uL [place] # (Auto) 0.5 (0.1-1.2) X10*3/uL Eos # (Auto) 0.1 (0.0-0.4) X10*3/uL Baso # (Auto) 0.0 (0.0-0.2) X10*3/uL Abs Immat Gran (auto) 0.01 (0.00-0.03) X10*3/uL Absolute Neuts (auto) 3.1 (2.0-8.3) x10*3/uL Absolute Nucleated RBC 0.000 (0.0-0.012) X10*3/uL Nucleated RBC % (auto) 0.0 (0.0-0.2) /100WBC ESR 1 (0-15) MM/HR PT 11.7 (9.9-13.0) SEC INR 1.0 (0.9-1.1) APTT 35.4 (24.1-38.0) SEC Sodium (135-145) mmol/L Potassium (3.3-5.1) mmol/L Chloride (96-108) mmol/L Carbon Dioxide (22-29) mmol/L Anion Gap (12-20) BUN (9-16) mg/dL Creatinine (0.5-1.4) mg/dL Estim Creat Clear Calc Estimated GFR Random Glucose (60-115) mg/dL Lactic Acid (0.5-2.0) mmol/L Calcium (8.4-10.2) mg/dL Total Bilirubin (0.0-1.0) mg/dL Direct Bilirubin (0.0-0.5) mg/dL AST (5-37) U/L ALT (0-40) U/L Alkaline Phosphatase (39-117) U/L Troponin I High Sens (<3.5-35.0) ng/L C-Reactive Protein (< or = 0.50) mg/dL B-Natriuretic Peptide (<100) pg/mL Total Protein (6.5-8.0) g/dL Albumin (3.5-5.0) g/dL Lipase (8-78) U/L Ethyl Alcohol mg/dL 08/24/21 08/24/21 08/24/21 Range/Units 21:14 21:14 21:14 WBC (4.8-10.8) X10*3/uL RBC (4.60-5.80) X10*6/uL Hgb (14.0-18.0) g/dl Hct (42.0-52.0) % MCV (80.0-98.0) fL MCH (27.0-33.0) pg MCHC (31.0-36.0) g/dl RDW (11.0-16.0) % Plt Count (160-400) X10*3/uL MPV (9.4-12.4) fL Immature Gran % (Auto) (0.0-0.4) % Neut % (Auto) (45-73) % Lymph % (Auto) (20-40) % [place] % (Auto) (2-11) % Eos % (Auto) (0-4) % Baso % (Auto) (0-2) % Lymph # (Auto) (1.2-4.9) X10*3/uL [place] # (Auto) (0.1-1.2) X10*3/uL Eos # (Auto) (0.0-0.4) X10*3/uL Baso # (Auto) (0.0-0.2) X10*3/uL Abs Immat Gran (auto) (0.00-0.03) X10*3/uL Absolute Neuts (auto) (2.0-8.3) x10*3/uL Absolute Nucleated RBC (0.0-0.012) X10*3/uL Nucleated RBC % (auto) (0.0-0.2) /100WBC ESR (0-15) MM/HR PT (9.9-13.0) SEC INR (0.9-1.1) APTT (24.1-38.0) SEC Sodium 142 (135-145) mmol/L Potassium 4.2 (3.3-5.1) mmol/L Chloride 105 (96-108) mmol/L Carbon Dioxide 29 (22-29) mmol/L Anion Gap 12 (12-20) BUN 18 H (9-16) mg/dL Creatinine 1.12 (0.5-1.4) mg/dL Estim Creat Clear Calc 103.8 Estimated GFR > 60 Random Glucose 95 (60-115) mg/dL Lactic Acid 0.8 (0.5-2.0) mmol/L Calcium 9.7 (8.4-10.2) mg/dL Total Bilirubin 2.1 H (0.0-1.0) mg/dL Direct Bilirubin 0.7 H (0.0-0.5) mg/dL AST 18 D (5-37) U/L ALT 18 (0-40) U/L Alkaline Phosphatase 45 (39-117) U/L Troponin I High Sens < 3.5 (<3.5-35.0) ng/L C-Reactive Protein 0.03 (< or = 0.50) mg/dL B-Natriuretic Peptide < 10 (<100) pg/mL Total Protein 7.5 (6.5-8.0) g/dL Albumin 4.8 (3.5-5.0) g/dL Lipase 15 (8-78) U/L Ethyl Alcohol mg/dL 08/24/21 Range/Units 21:14 WBC (4.8-10.8) X10*3/uL RBC (4.60-5.80) X10*6/uL Hgb (14.0-18.0) g/dl Hct (42.0-52.0) % MCV (80.0-98.0) fL MCH (27.0-33.0) pg MCHC (31.0-36.0) g/dl RDW (11.0-16.0) % Plt Count (160-400) X10*3/uL MPV (9.4-12.4) fL Immature Gran % (Auto) (0.0-0.4) % Neut % (Auto) (45-73) % Lymph % (Auto) (20-40) % [place] % (Auto) (2-11) % Eos % (Auto) (0-4) % Baso % (Auto) (0-2) % Lymph # (Auto) (1.2-4.9) X10*3/uL [place] # (Auto) (0.1-1.2) X10*3/uL Eos # (Auto) (0.0-0.4) X10*3/uL Baso # (Auto) (0.0-0.2) X10*3/uL Abs Immat Gran (auto) (0.00-0.03) X10*3/uL Absolute Neuts (auto) (2.0-8.3) x10*3/uL Absolute Nucleated RBC (0.0-0.012) X10*3/uL Nucleated RBC % (auto) (0.0-0.2) /100WBC ESR (0-15) MM/HR PT (9.9-13.0) SEC INR (0.9-1.1) APTT (24.1-38.0) SEC Sodium (135-145) mmol/L Potassium (3.3-5.1) mmol/L Chloride (96-108) mmol/L Carbon Dioxide (22-29) mmol/L Anion Gap (12-20) BUN (9-16) mg/dL Creatinine (0.5-1.4) mg/dL Estim Creat Clear Calc Estimated GFR Random Glucose (60-115) mg/dL Lactic Acid (0.5-2.0) mmol/L Calcium (8.4-10.2) mg/dL Total Bilirubin (0.0-1.0) mg/dL Direct Bilirubin (0.0-0.5) mg/dL AST (5-37) U/L ALT (0-40) U/L Alkaline Phosphatase (39-117) U/L Troponin I High Sens (<3.5-35.0) ng/L C-Reactive Protein (< or = 0.50) mg/dL B-Natriuretic Peptide (<100) pg/mL Total Protein (6.5-8.0) g/dL Albumin (3.5-5.0) g/dL Lipase (8-78) U/L Ethyl Alcohol < 10 mg/dL ECG Data ECG #1: Attestation: I personally reviewed and interpreted this ECG as follows: ECG interpretation date: 08/24/21 ECG interpretation time: 16:02 Prior ECG tracings: available for review Interpretation: Vent. rate 81 BPM LA interval 158 ms QRS duration 110 ms QT/QTc 358/415 ms P-R-T axes 75 63 56 Sinus rhythm with marked sinus arrhythmia Incomplete right bundle branch block Borderline ECG When compared with ECG of 09-JUL-2020 22:17, ST elevation now present in Anterior leads ECG #2: Attestation: I personally reviewed and interpreted this ECG as follows: ECG interpretation date: 08/24/21 ECG interpretation time: 21:18 Prior ECG tracings: available for review Interpretation: Vent. rate 63 BPM LA interval 160 ms QRS duration 110 ms QT/QTc 374/382 ms P-R-T axes 76 67 44 Sinus rhythm with marked sinus arrhythmia Incomplete right bundle branch block Borderline ECG When compared with ECG of 24-AUG-2021 16:02, No significant change was found Discharge Plan Discharge Clinical Impression: Atypical chest pain Patient Disposition: Home, Self-Care Instructions: Noncardiac Chest Pain (ED) Additional Instructions: You were evaluated for chest pain. EKGs show changes consistent past history of myocarditis. Your cardiac enzymes were negative. Cardiac enzymes on 07/09/2020 were 11,817. Today they are 0. Please continue to follow-up with your breaker layer. Dr Snow. Thank you for choosing this emergency department for evaluation. Please follow-up with primary care physician as needed. Return to the emergency department for any new, concerning, or worsening symptoms. Prescriptions: No Action multivitamin [Once Daily Multivitamin] Tablet 1 tab PO DAILY Stand Alone Forms: Work/School Release Interventions: ED Discharge Assessment Last Done: 08/24/21 22:37 Discharge Date/Time: 08/24/21 22:39
--- NOTE | 2021-08-24 21:23 | ECG_ITS ---
Test Reason : CHEST PAIN Blood Pressure : / mmHG Vent. Rate : 063 BPM Atrial Rate : 063 BPM P-R Int : 160 ms QRS Dur : 110 ms QT Int : 374 ms P-R-T Axes : 076 067 044 degrees QTc Int : 382 ms Sinus rhythm with marked sinus arrhythmia Incomplete right bundle branch block Borderline ECG When compared with ECG of 24-AUG-2021 16:02, No significant change was found Referred By: Steffanie Romero Electronically Signed By:MINI CHAUHAN
[2021-08-24 21:25] LABS: MANUAL DIFF FLAG NO
[2021-08-24 21:34] LABS: Basophils Percent Auto 0.7 % (0-2); Eosinophils Absolute Auto 0.1 X10*3/uL (0.0-0.4); Eosinophils Percent Auto 2.2 % (0-4); Hematocrit 47.5 % (42.0-52.0); Hemoglobin 15.9 g/dl (14.0-18.0); Imm Gran Abs Auto 0.01 X10*3/uL (0.00-0.03); Imm Gran Pct Auto 0.2 % (0.0-0.4); Lymphocytes Absolute Auto 1.8 X10*3/uL (1.2-4.9); Lymphocytes Percent Auto 31.7 % (20-40); Mean Corpuscular HGB Conc 33.5 g/dl (31.0-36.0); Mean Corpuscular Hemoglobin 29.4 pg (27.0-33.0); Mean Corpuscular Volume 87.8 fL (80.0-98.0); Mean Platelet Volume 11.9 fL (9.4-12.4); Monocytes Absolute Auto 0.5 X10*3/uL (0.1-1.2); Monocytes Percent Auto 9.2 % (2-11); Neutrophils Absolute Auto 3.1 x10*3/uL (2.0-8.3); Platelet Count 225 X10*3/uL (160-400); Red Blood Count 5.41 X10*6/uL (4.60-5.80); Red Cell Distribution Width 13.2 % (11.0-16.0); White Blood Count 5.5 X10*3/uL (4.8-10.8)
[2021-08-24 21:39] LABS: Prothrombin Time 11.7 SEC (9.9-13.0)
[2021-08-24 21:40] LABS: Ethanol < 10 mg/dL; Lactic Acid 0.8 mmol/L (0.5-2.0)
[2021-08-24 21:42] LABS: Partial Thromboplastin Time 35.4 SEC (24.1-38.0)
[2021-08-24 21:44] LABS: Alanine Aminotransferase 18 U/L (0-40); Albumin Level 4.8 g/dL (3.5-5.0); Alkaline Phosphatase 45 U/L (39-117); Anion Gap 12 (12-20); Aspartate Amino Transferase 18 U/L (5-37); Bilirubin Direct 0.7 mg/dL (0.0-0.5); Bilirubin Total 2.1 mg/dL (0.0-1.0); Blood Urea Nitrogen 18 mg/dL (9-16); C Reactive Protein 0.03 mg/dL (< or = 0.50); Calcium 9.7 mg/dL (8.4-10.2); Carbon Dioxide 29 mmol/L (22-29); Chloride 105 mmol/L (96-108); Creatinine Clr Calc Pharmacy 103.8; Estimated Glomerular Filt Rate > 60; Glucose Random 95 mg/dL (60-115); Lipase 15 U/L (8-78); Potassium 4.2 mmol/L (3.3-5.1); Sodium 142 mmol/L (135-145); Total Protein 7.5 g/dL (6.5-8.0)
[2021-08-24 21:48] LABS: B Type Natriuretic Peptide < 10 pg/mL (<100); Troponin-I High Sensitivity < 3.5 ng/L (<3.5-35.0)
[2021-08-24 22:11] LABS: Erythrocyte Sedimentation Rate 1 MM/HR (0-15)
[2021-08-24 22:33] VITALS: BP 115/60; PULSE 68; RESP 18; TEMP 36.6; O2SAT 99
== END 2021-08-24 22:39 | disposition home or self-care (01) ==
PROVIDERS: Nurse Practitioner Family; Emergency Provider Emergency Medicine Emergency Medical Services; PCP Nurse Practitioner Family
DX: R07.89 Other chest pain (principal)
CPT/HCPCS: 36410; 80048; 80076; 82077; 83605; 83690; 83880; 84484; 85025; 85610; 85652; 85730; 86140; 87040; 93005; 96374; 99284; J1885

== ENCOUNTER 2024-03-11 10:48 | Emergency (ER) | payer OTHER, SELFPAY ==
--- NOTE | ~2024-03-11 | US_ITS ---
EXAMINATION: US SCROTUM CLINICAL INFORMATION: Left testicular/inguinal pain.. COMPARISON: None available. TECHNIQUE: A sonogram of the scrotum was performed assessing roberson-scale appearance and color Doppler flow. Spectral Doppler analysis of the arterial and venous flow were performed in the testes bilaterally. FINDINGS: RIGHT: Right testicle measures 4.6 x 2.6 x 2.9 cm, volume 18.1 mL. No focal testicular parenchymal lesions are visualized. Spectral Doppler analysis of the arterial and venous flow is normal in the right testis. Right epididymal head is normal in size. No right hydrocele or varicocele is seen. Right epididymal Doppler flow is normal. Small 0.4 cm epididymal head cyst present. LEFT: Left testicle measures 4.6 x 2.8 x 3.0 cm, volume 20.2 mL. No focal testicular parenchymal lesions are visualized. Spectral Doppler analysis of the arterial and venous flow is normal in the left testis. Left epididymal head is normal in size. No left hydrocele or varicocele is seen. Left epididymal Doppler flow is normal. Directed imaging in the left inguinal region of pain, as directed by the patient, demonstrates no sonographic abnormalities. US/US scrotum IMPRESSION: 1. Essentially normal ultrasound of the testes. No evidence of torsion or other abnormality to cause left pain. 2. Directed imaging in the left inguinal region of pain demonstrates no sonographic abnormalities. Electronically signed by: Gordo Tracy MD 03/11/2024 12:[address] [facility]
--- NOTE | ~2024-03-11 | US_ITS ---
EXAMINATION: US SCROTUM CLINICAL INFORMATION: Left testicular/inguinal pain.. COMPARISON: None available. TECHNIQUE: A sonogram of the scrotum was performed assessing roberson-scale appearance and color Doppler flow. Spectral Doppler analysis of the arterial and venous flow were performed in the testes bilaterally. FINDINGS: RIGHT: Right testicle measures 4.6 x 2.6 x 2.9 cm, volume 18.1 mL. No focal testicular parenchymal lesions are visualized. Spectral Doppler analysis of the arterial and venous flow is normal in the right testis. Right epididymal head is normal in size. No right hydrocele or varicocele is seen. Right epididymal Doppler flow is normal. Small 0.4 cm epididymal head cyst present. LEFT: Left testicle measures 4.6 x 2.8 x 3.0 cm, volume 20.2 mL. No focal testicular parenchymal lesions are visualized. Spectral Doppler analysis of the arterial and venous flow is normal in the left testis. Left epididymal head is normal in size. No left hydrocele or varicocele is seen. Left epididymal Doppler flow is normal. Directed imaging in the left inguinal region of pain, as directed by the patient, demonstrates no sonographic abnormalities. US/US scrotum doppler IMPRESSION: 1. Essentially normal ultrasound of the testes. No evidence of torsion or other abnormality to cause left pain. 2. Directed imaging in the left inguinal region of pain demonstrates no sonographic abnormalities. Electronically signed by: Gordo Tracy MD 03/11/2024 12:35 PM [facility]
--- NOTE | ~2024-03-11 | CT_ITS ---
EXAMINATION: CT ABDOMEN AND PELVIS WITHOUT CONTRAST CLINICAL INFORMATION: Left flank and groin pain COMPARISON: Scrotal ultrasound of 03/11/2024 TECHNIQUE: Multidetector volumetric imaging was performed of the abdomen and pelvis without contrast. No oral contrast material.. Sagittal and coronal reformatted images were obtained on the technologist's workstation. This CT examination was performed using dose optimization techniques as appropriate, variously including the following: *Automated exposure control *Adjustment of mA and/or kV according to patient size (this includes techniques or standardized protocols for targeted exams where dose is matched to indication/reason for exam; i.e. extremities or head) *Use of iterative reconstruction technique DLP: 397 mGy-cm FINDINGS: LUNG BASES: The visualized lung bases are unremarkable. LIVER, GALLBLADDER, AND BILIARY TREE: The liver is normal in size, shape, and attenuation. No focal hepatic lesion or biliary ductal dilatation is present. The gallbladder is unremarkable with no evidence of radiopaque gallstones, gallbladder wall thickening, or obvious pericholecystic inflammatory changes. PANCREAS: Unremarkable SPLEEN: Unremarkable ADRENAL GLANDS: Unremarkable KIDNEYS AND URETERS: The kidneys are normal in size, shape, and attenuation. No hydronephrosis, hydroureter, or calculi seen. No perinephric stranding. BLADDER: Unremarkable GASTROINTESTINAL TRACT: The small and large bowel are unremarkable. The appendix is located in the pelvis and is unremarkable. ABDOMINAL WALL: No significant hernia is appreciated. LYMPH NODES: Normal VASCULAR: Unremarkable PELVIC VISCERA: Unremarkable OSSEOUS STRUCTURES: Unremarkable CT/CT abdomen pelvis wo IV con IMPRESSION: Unremarkable noncontrast abdominal and pelvic CT. Fleischner guidelines were followed. Electronically signed by: Navarro Lua MD 03/11/2024 03:21 PM [facility]
--- OUTSIDE RECORDS SUMMARY | 2024-03-11 10:51 | XMS_ITS ---
Author Name [facility] Organization Unknown History of Medication Use Medication Directions Dispensed Refills Start Date End Date Stat No medication inform ation recorded 05/18/2023 active Problems Problem Status Onset Date Problem Type Date of Resoluti on Source Myocarditis, unspecified active ProblemAct [facility] Leukoplakia of oral mucosa, including tongue active 2023-05-16 [facility] [facility] Disease of pericardium, unspecified active [facility] Acute myocardial infarction, unspecified active ProblemAct [facility]
[2024-03-11 11:01] VITALS: BP 117/61; PULSE 74; RESP 18; TEMP 36.7; O2SAT 97; BMI 23.2
[2024-03-11 11:25] LABS: MANUAL DIFF FLAG NO
[2024-03-11 11:31] LABS: Basophils Percent Auto 0.9 % (0-2); Eosinophils Absolute Auto 0.1 X10*3/uL (0.0-0.4); Eosinophils Percent Auto 1.2 % (0-4); Imm Gran Abs Auto 0.01 X10*3/uL (0.00-0.03); Imm Gran Pct Auto 0.2 % (0.0-0.4); Lymphocytes Absolute Auto 1.2 X10*3/uL (1.2-4.9); Lymphocytes Percent Auto 27.8 % (20-40); Mean Corpuscular Hemoglobin 29.8 pg (27.0-33.0); Mean Corpuscular Volume 87.5 fL (80.0-98.0); Mean Platelet Volume 10.8 fL (9.4-12.4); Monocytes Absolute Auto 0.3 X10*3/uL (0.1-1.2); Monocytes Percent Auto 7.6 % (2-11); Neutrophils Absolute Auto 2.7 x10*3/uL (2.0-8.3); Neutrophils Percent Auto 62.3 % (45-73); Platelet Count 208 X10*3/uL (160-400); Red Blood Count 5.37 X10*6/uL (4.60-5.80); Red Cell Distribution Width 12.8 % (11.0-16.0); White Blood Count 4.3 X10*3/uL (4.8-10.8)
[2024-03-11 11:45] LABS: Anion Gap 14 (12-20); Blood Urea Nitrogen 15 mg/dL (9-16); Calcium 9.4 mg/dL (8.4-10.2); Carbon Dioxide 28 mmol/L (22-29); Chloride 104 mmol/L (96-108); Creatinine Clr Calc Pharmacy 89.4; Estimated Glomerular Filt Rate > 60; Glucose Random 94 mg/dL (60-115); Potassium 4.6 mmol/L (3.3-5.1); Sodium 141 mmol/L (135-145)
--- NOTE | 2024-03-11 14:05 | ED_ITS ---
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 Not sexually active, no discharge or dysuria. He notes it hurts to sit down. 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 Tylenol treats the pain. He notes this started Friday. NO trauma to the area MD Complaint: testicle pain Onset (ago): day(s) (5) Duration: intermittent Location: left testicle and left inguinal region Severity: mild Quality: aching Relieving factors: none Exacerbating factors: other (sitting) Associated symptoms: Reports denies other symptoms Related Data Home Medications ?Medication ?Instructions ?Recorded ?Confirmed multivitamin 1 tab PO DAILY 07/09/20 07/09/20 Previous Rx's ?Medication ?Instructions ?Recorded azithromycin 250 mg tablet See Rx Instructions PO .COMPLEX #6 08/06/22 tabs Allergies Allergy/AdvReac Type Severity Reaction Status Date / Time Penicillins Allergy Mild hives Verified 03/11/24 11:03 amoxicillin Allergy Hives Verified 03/11/24 11:03 COVID-19 (SARS-CoV-2) Allergy Unknown Verified 03/11/24 11:04 vaccine, srini Review of Systems 2 Review of Systems: Constitutional : No Weight loss, No Fever, No Chills ENT/Mouth : No sore throat, No Rhinorrhea Eyes: No Swelling, No Redness Cardiovascular : No Chest Pain, No SOB, NoEdema Respiratory : No Cough, No Sputum, No Wheezing Gastrointestinal : no Nausea, no Vomiting, no Diarrhea, no abdominal Pain, No Hematochezia, No Melena Genitourinary : No Dysuria, No Urinary Frequency, No Hematuria, No Urgency , pos testicular pain Musculoskeletal : No joint pain, No Myalgias, No Joint Swelling Skin : No Skin Lesions, No rash Neuro : No Weakness, No Numbness, No Dizziness, No Headache All other systems reviewed and are negative. [facility] Past Medical History Attestation statement: The following information was validated with the patient. Source: old records reviewed Medical History (Updated 03/11/24 @ 15:40 by Kat Purcell DO) Myocarditis No known health problems Social History Social History Patient Tobacco Use Status: Never used Tobacco Advance Directives: No Advance Directives Information Provided: Yes Physical Exam 2 Vital Signs: Vital Signs: Last Vital Signs Temp 98.1 F 03/11/24 11:01 Pulse 74 03/11/24 11:01 Resp 18 03/11/24 11:01 BP 117/61 03/11/24 11:01 Pulse Ox 97 03/11/24 11:01 O2 Del Method Room Air 03/11/24 11:01 BMI result Body Mass Index 23.2 Appearance: Alert. Oriented X3. No acute distress. Eyes: Pupils equal, round and reactive to light. ENT: Pharynx normal. Neck: Normal inspection. Neck supple. CVS: Normal heart rate and rhythm. Pulses normal. Respiratory: No respiratory distress. Breath sounds normal. Abdomen: Soft and nontender. Mild L inguinal area ttp but no mass or nodes felt : normal exam and no ttp along spermatic cord Skin: Skin warm and dry. Normal skin color. Normal skin turgor. Extremities: No lower extremity edema. No calf ttp Neuro: Oriented X 3. No motor deficit. No sensory deficit. 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 Differential Diagnosis Differential Diagnoses: The differential diagnosis associated with the presentation includes testicular pain, STI, renal colic Admission/Observation Consideration of admission/observation: Escalation of care including admission/observation considered work up negative stable for DC Lab Data [facility] Lab Attestation statement: I reviewed the patient's lab results. 03/11/24 11:21 03/11/24 11:21 Labs: Lab Results 03/11/24 03/11/24 Range/Units 11:21 13:57 WBC 4.3 L (4.8-10.8) X10*3/uL RBC 5.37 (4.60-5.80) X10*6/uL Hgb 16.0 (14.0-18.0) g/dl Hct 47.0 (42.0-52.0) % MCV 87.5 (80.0-98.0) fL MCH 29.8 (27.0-33.0) pg MCHC 34.0 (31.0-36.0) g/dl RDW 12.8 (11.0-16.0) % Plt Count 208 (160-400) X10*3/uL MPV 10.8 (9.4-12.4) fL Immature Gran % (Auto) 0.2 (0.0-0.4) % Neut % (Auto) 62.3 (45-73) % Lymph % (Auto) 27.8 (20-40) % Blair % (Auto) 7.6 (2-11) % Eos % (Auto) 1.2 (0-4) % Baso % (Auto) 0.9 (0-2) % Lymph # (Auto) 1.2 (1.2-4.9) X10*3/uL Blair # (Auto) 0.3 (0.1-1.2) X10*3/uL Eos # (Auto) 0.1 (0.0-0.4) X10*3/uL Baso # (Auto) 0.0 (0.0-0.2) X10*3/uL Abs Immat Gran (auto) 0.01 (0.00-0.03) X10*3/uL Absolute Neuts (auto) 2.7 (2.0-8.3) x10*3/uL Absolute Nucleated RBC 0.000 (0.0-0.012) X10*3/uL Nucleated RBC % (auto) 0.0 (0.0-0.2) /100WBC Sodium 141 (135-145) mmol/L Potassium 4.6 (3.3-5.1) mmol/L Chloride 104 (96-108) mmol/L Carbon Dioxide 28 (22-29) mmol/L Anion Gap 14 (12-20) BUN 15 (9-16) mg/dL Creatinine 1.27 (0.5-1.4) mg/dL Estim Creat Clear Calc 89.4 Estimated GFR > 60 Random Glucose 94 (60-115) mg/dL Calcium 9.4 (8.4-10.2) mg/dL Urine Color Yellow Urine Appearance Clear Urine pH 7.0 (5.0-9.0) Ur Specific Lebeau 1.010 (1.005-1.025) Urine Protein Negative (Neg-Trace) mg/dL Urine Glucose (UA) Negative (Negative) mg/dL Urine Ketones Negative (Negative) mg/dL Urine Blood Negative (Negative) Urine Nitrite Negative (Negative) Ur Leukocyte Esterase Negative (Negative) Urine RBC 0-2 (0-2) /HPF Urine WBC 0-5 (0-5) /HPF Ur Squamous Epith Cells 0-2 (0-2) /HPF Urine Bacteria None Seen (None Seen) Hyaline Casts 0-2 (0-2) /LPF Independent Interpretation I performed an independent interpretation of an: Ultrasound (no torsion, no inflammation) and CT Scan (normal ) Radiology Impression Discussion of test interpretation with radiology: I have reviewed the radiologist's reading. External Record Review External record reviewed: Outpatient record Prescription Management I considered prescription management with: Other Discharge Plan Discharge Clinical Impression: Lt groin pain Patient Disposition: Home, Self-Care Instructions: Pelvic Pain (ED) Additional Instructions: labs and urine reassuring return for any worsening symptoms or concerns - could just be MSK strain, rest and stay hydrated US normal US/US scrotum IMPRESSION: 1. Essentially normal ultrasound of the testes. No evidence of torsion or other abnormality to cause left pain. 2. Directed imaging in the left inguinal region of pain demonstrates no sonographic abnormalities. CT scan no acute cause of pain 397 mGy-cm FINDINGS: LUNG BASES: The visualized lung bases are unremarkable. LIVER, GALLBLADDER, AND BILIARY TREE: The liver is normal in size, shape, and attenuation. No focal hepatic lesion or biliary ductal dilatation is present. The gallbladder is unremarkable with no evidence of radiopaque gallstones, gallbladder wall thickening, or obvious pericholecystic inflammatory changes. PANCREAS: Unremarkable SPLEEN: Unremarkable ADRENAL GLANDS: Unremarkable KIDNEYS AND URETERS: The kidneys are normal in size, shape, and attenuation. No hydronephrosis, hydroureter, or calculi seen. No perinephric stranding. BLADDER: Unremarkable GASTROINTESTINAL TRACT: The small and large bowel are unremarkable. The appendix is located in the pelvis and is unremarkable. ABDOMINAL WALL: No significant hernia is appreciated. LYMPH NODES: Normal VASCULAR: Unremarkable PELVIC VISCERA: Unremarkable OSSEOUS STRUCTURES: Unremarkable CT/CT abdomen pelvis wo IV con IMPRESSION: Unremarkable noncontrast abdominal and pelvic CT. Fleischner guidelines were followed. Prescriptions: No Action multivitamin [Once Daily Multivitamin] Tablet 1 tab PO DAILY azithromycin 250 mg tablet See Rx Instructions PO .COMPLEX Qty: 6 0RF Rx Instructions: take 500 mg today (day 1), then 250 mg for 4 days (days 2-5) PO Stand Alone Forms: Work/School Release Print Language: Luxembourgish
[2024-03-11 14:13] LABS: Appearance Urine Clear; Color Urine Yellow; Glucose Urine UA Negative (Negative); Leukocyte Esterase Urine Negative (Negative); Nitrite Urine Negative (Negative); Urine Blood Negative (Negative); Urine Ketones Negative (Negative); Urine Protein Negative (Neg-Trace)
[2024-03-11 14:16] LABS: Bacteria Urine None Seen (None Seen); Hyaline Casts Urine 0-2 /LPF (0-2); RBC Urine 0-2 /HPF (0-2); Squamous Epithelial Cell Urine 0-2 /HPF (0-2); WBC Urine 0-5 /HPF (0-5)
[2024-03-11 15:54] VITALS: BP 125/87; PULSE 75; RESP 16; TEMP 37.1; O2SAT 98
[2024-03-11 16:00] VITALS: BP 125/87; PULSE 75; RESP 16; TEMP 37.1; O2SAT 98
[2024-03-11 17:24] LABS: CT PCR NOT DETECTED (Not Detect.); NG PCR NOT DETECTED (Not Detect.)
== END 2024-03-11 16:00 | disposition home or self-care (01) ==
PROVIDERS: Physician Assistant; Emergency Provider Emergency Medicine; PCP Internal Medicine
DX: R10.32 Left lower quadrant pain (principal); N50.812 Left testicular pain
CPT/HCPCS: 36415; 74176; 76870; 80048; 81001; 85025; 87491; 87591; 93975; 99283; 99284

== ENCOUNTER → 2024-03-11 11:10 | Outpatient (BNV) | payer OTHER, SELFPAY | PROVIDERS: PCP Internal Medicine; Visit Provider Radiology Diagnostic Radiology | DX: N50.812 Left testicular pain (principal) | CPT/HCPCS: 76870; 93976 ==